=== PATIENT | male | born 1940 | race Caucasian/White ===

== ENCOUNTER 2019-11-02 07:00 | Day surgery (SDC) | payer MEDICARE ==
[2019-10-28 09:52] LABS: BASOPHILS % (AUTO) 0.6 % (0.0-5.0); EOSINOPHILS % (AUTO) 2.4 % (0.0-8.0); MEAN CORPUSCULAR HGB CONC 33.1 g/dL (32.0-36.0); MEAN CORPUSCULAR VOLUME 96.6 fL (79-99); MONOCYTES % (AUTO) 10.1 % (3.0-13.0); NEUTROPHILS % (AUTO) 70.5 % (40.0-77.0); PLATELET COUNT (AUTO) 393 K/uL (130-400); RED BLOOD CELL COUNT(AUTO) 4.35 MIL/uL (4.50-6.20); RED CELL DISTRIBUTION WIDTH 15.1 % (11.0-15.5); WHITE BLOOD COUNT (AUTO) 7.1 K/uL (4.8-10.8)
[2019-10-28 10:00] LABS: CREATININE 2.7 mg/dL (0.5-1.5); POTASSIUM 4.7 mmol/L (3.5-5.1)
--- NOTE | 2019-11-01 09:34 | NUR ---
No covid test done, spoke to Doctor Corby and Doctor Harika and both agreed to have patient seen with rapid covid test done. Order in cpoe.
--- NOTE | 2019-11-01 14:18 | NUR ---
LABS INFORMED RAYMOND HERRERA OF BUN/CREA RESULTS. PER DR. ELIZABETH, NO ORDERS RECEIVED. PROCEED WITH PLANNED PROCEDURE
[2019-11-02] VITALS (10 sets, daily range): BP systolic 81–135; BP diastolic 47–74
[~2019-11-02] VITALS: Ht 180.3 cm; Wt 79.4 kg
[~2019-11-02 07:00] MED LIST: APIX5TAB PO; DRON400T2 PO; FENO145T26 PO; FISH1CAP27 PO; FLUT1DIS4 IH; FURO40TA5 PO; LISI40TA4 PO; METF-446 PO; POTA10CA44 PO; PRAV10TA39 PO; TAMS-1 PO
[2019-11-02] MEDS ORDERED: SODIUM CHLORIDE 0.9% 1000ML 1,000 ML IV ONE (07:22)
[2019-11-02] MEDS ORDERED: PROPOFOL 10 MG/ML 20ML VIAL IV ONE (08:29)
[2019-11-02] MEDS ORDERED: SUCCINYLCHOLINE 200MG/10ML SYR ONE (08:29)
[2019-11-02] MEDS ORDERED: LIDOCAINE PF 2% 5ML ABBOJECT ONE (08:29)
--- NOTE | 2019-11-02 08:45 | NUR ---
In room Dr. Shabazz and MODESTO Woodard in room; pads applied to pt by Dr. Shabazz. Time out called. All in agreement. First shock delivered at 200J. Pt continued in A fib. Second shock delivered then at 250J. No further shock delivered.
--- NOTE | 2019-11-02 09:50 | NUR ---
D/C Pt was prepared for discharge. Discharge instructions were given to pt and to over the phone. Copies of instructions and prescription given to pt. Also informed them of the follow up appointment with Dr. Shabazz with time and date given. Also informed them about the new medications he needs to start and on the one he needs to stop. Both verbalized understanding. All questions answered. Assisted pt in getting dressed and took him outside facility via w/c where was waiting. Pt in no distress and was very appreciative.
== END 2019-11-02 10:00 ==
LOC: DAH 07:00
PROVIDERS: ATTEND Internal Medicine Cardiovascular Disease
DX: I48.19 Other persistent atrial fibrillation (principal); I49.8 Other specified cardiac arrhythmias; I49.3 Ventricular premature depolarization; I10 Essential (primary) hypertension; E78.5 Hyperlipidemia, unspecified; E11.9 Type 2 diabetes mellitus without complications; F03.90 Unspecified dementia, unspecified severity, without behavioral disturbance, psychotic disturbance, mood disturbance, and anxiety; Z79.01 Long term (current) use of anticoagulants; Z79.899 Other long term (current) drug therapy
CPT/HCPCS: 36415; 80048; 82948; 85025; 87426; 92960; 93005 ×2; A4215; A4216; A4221; A4222; A4223 ×3; A4606; A4663; J0330; J2001; J2704; J7030

== ENCOUNTER 2019-12-15 07:23 | Day surgery (SDC) | payer MEDICARE ==
[2019-12-10 15:19] LABS: BASOPHILS % (AUTO) 0.6 % (0.0-5.0); EOSINOPHILS % (AUTO) 1.8 % (0.0-8.0); HEMATOCRIT 36.7 % (42-54); LYMPHOCYTES % (AUTO) 13.5 % (21.0-51.0); MEAN CORPUSCULAR HEMOGLOBIN 31.3 pg (27.0-33.0); MEAN CORPUSCULAR HGB CONC 33.5 g/dL (32.0-36.0); MEAN CORPUSCULAR VOLUME 93.4 fL (79-99); MONOCYTES % (AUTO) 10.9 % (3.0-13.0); NEUTROPHILS % (AUTO) 72.5 % (40.0-77.0); PLATELET COUNT (AUTO) 397 K/uL (130-400); RED BLOOD CELL COUNT(AUTO) 3.93 MIL/uL (4.50-6.20); RED CELL DISTRIBUTION WIDTH 14.9 % (11.0-15.5); WHITE BLOOD COUNT (AUTO) 8.4 K/uL (4.8-10.8)
[2019-12-10 15:32] LABS: CREATININE 2.1 mg/dL (0.5-1.5); POTASSIUM 4.9 mmol/L (3.5-5.1)
[2019-12-14 08:55] VITALS: BP 163/99
[~2019-12-15] VITALS: Ht 177.8 cm; Wt 71.6 kg
[2019-12-15] VITALS (11 sets, daily range): BP systolic 123–188; BP diastolic 72–96
[~2019-12-15 07:23] MED LIST changes: +AMIO200T6 PO; -DRON400T2 PO; +IPRA3AMP24 IH; +METF-444 PO; -METF-446 PO; +METF500S7 PO; +METO-408 PO; +SODIUM CHLORIDE 0.9% 1000ML 1,000 ML IV SCH
--- NOTE | 2019-12-15 07:30 | NUR ---
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 sat 98 % on RA. Pt prep for Cardioversion.
[2019-12-15] MEDS ORDERED: PROPOFOL 10 MG/ML 20ML VIAL IV ONE (08:57)
--- NOTE | 2019-12-15 09:00 | NUR ---
MD informed of pt SOB and info relayed to Anesthesia team by primary MD.
--- NOTE | 2019-12-15 09:00 | NUR ---
Cardioversion Pt given 150 of propofol by Anesthesia at 0902 , Cardioversion at 50 joules administered to pt at 0903 after sedation was successfully induced. SR noted on defib monitor. OPA placed on pt due to sedation by Dr Tavarez. Opa removed at 907 after pt noted to be awake. Will continue to monitor VS. Md at bedside spoke to and informed of findings. Addendum: 12/15/19 at 1219 by RADHA MARTIN RN RN 150 JOULES ADMINISTERED CORRECTION FROM 50 JOULES PER ABOVE CHARTING
--- NOTE | 2019-12-15 10:00 | NUR ---
Pt DC Pt dcd via wheelchair to in private vehicle.
[2019-12-16] MEDS ORDERED: METF-446 PO (09:47)
== END 2019-12-15 11:16 | disposition home or self-care (01) ==
LOC: DAH 07:23
PROVIDERS: ATTEND Internal Medicine Cardiovascular Disease
DX: I48.19 Other persistent atrial fibrillation (principal); I49.3 Ventricular premature depolarization; J44.9 Chronic obstructive pulmonary disease, unspecified; I10 Essential (primary) hypertension; E11.9 Type 2 diabetes mellitus without complications; E78.5 Hyperlipidemia, unspecified; F03.90 Unspecified dementia, unspecified severity, without behavioral disturbance, psychotic disturbance, mood disturbance, and anxiety; Z79.899 Other long term (current) drug therapy; Z20.828 Contact with and (suspected) exposure to other viral communicable diseases
CPT/HCPCS: 36415; 80048; 82948; 85025; 92960; 93005 ×2; A4215; A4216; A4221; A4222; A4223 ×3; A4606; A4663; C9803; J2704; U0003

== ENCOUNTER 2019-12-15 19:38 | Inpatient (IN) | payer MEDICARE ==
[~2019-12-15] VITALS: Ht 177.8 cm; Wt 69.9 kg
[~2019-12-15 19:38] MED LIST changes: -SODIUM CHLORIDE 0.9% 1000ML 1,000 ML IV SCH
[2019-12-15 20:00] LABS: BASOPHILS % (AUTO) 0.6 % (0.0-5.0); EOSINOPHILS % (AUTO) 2.3 % (0.0-8.0); HEMATOCRIT 38.7 % (42-54); LYMPHOCYTES % (AUTO) 20.2 % (21.0-51.0); MEAN CORPUSCULAR HEMOGLOBIN 31.8 pg (27.0-33.0); MEAN CORPUSCULAR HGB CONC 33.6 g/dL (32.0-36.0); MEAN CORPUSCULAR VOLUME 94.6 fL (79-99); MONOCYTES % (AUTO) 9.9 % (3.0-13.0); NEUTROPHILS % (AUTO) 66.1 % (40.0-77.0); PLATELET COUNT (AUTO) 527 K/uL (130-400); RED BLOOD CELL COUNT(AUTO) 4.09 MIL/uL (4.50-6.20); RED CELL DISTRIBUTION WIDTH 15.3 % (11.0-15.5); WHITE BLOOD COUNT (AUTO) 10.6 K/uL (4.8-10.8)
[2019-12-15 20:03] LABS: ABG BASE EXCESS -1.5 mmol/L (-2.0-3.0); ABG HCO3 23.1 mmol/L (21.0-28.0); ABG OXYGEN SATURATION 97.7 % (95.0-99.0); ABG PCO2 39 mmHg (35-48)
[2019-12-15] MEDS ORDERED: ALBUTEROL INHALER 90MCG/INH IH ONE (20:06)
[2019-12-15 20:15] LABS: CREATININE 2.1 mg/dL (0.5-1.5); POTASSIUM 4.4 mmol/L (3.5-5.1)
[2019-12-15 20:16] LABS: INR 1.14 (0.85-1.15); PARTIAL THROMBOPLASTIN TIME 29.2 SEC (26.3-35.5); PROTHROMBIN TIME 12.2 SEC (9.6-11.6)
[2019-12-15 20:19] LABS: ALBUMIN 3.4 g/dL (3.5-5.0); BILIRUBIN,TOTAL 0.5 mg/dL (0.2-1.0); TOTAL PROTEIN, SERUM 6.9 g/dL (6.0-8.3)
[2019-12-15 20:24] LABS: B-TYPE NATRIURETIC PEPTIDE 790 pg/mL (0-100)
[2019-12-15] MEDS ORDERED: ASPIRIN 325 MG TABLET ONE (20:59)
[2019-12-15] MEDS ORDERED: NITROGLYCERIN 1GM/1 INCH PACKET TD ONE (21:00)
[2019-12-15] MEDS ORDERED: FUROSEMIDE 10 MG/ML 4ML VIAL ONE (21:01)
[2019-12-15] MEDS ORDERED: 1/2 NORMAL SALINE 1,000 ML IV SCH (23:30)
[2019-12-16] MEDS ORDERED: FUROSEMIDE 10 MG/ML 4ML VIAL IVP SCH
[2019-12-16 04:43] LABS: BASOPHILS % (AUTO) 0.2 % (0.0-5.0); EOSINOPHILS % (AUTO) 0.1 % (0.0-8.0); HEMATOCRIT 33.7 % (42-54); LYMPHOCYTES % (AUTO) 4.2 % (21.0-51.0); MEAN CORPUSCULAR HEMOGLOBIN 31.3 pg (27.0-33.0); MEAN CORPUSCULAR HGB CONC 32.9 g/dL (32.0-36.0); MEAN CORPUSCULAR VOLUME 94.9 fL (79-99); MONOCYTES % (AUTO) 7.2 % (3.0-13.0); NEUTROPHILS % (AUTO) 87.4 % (40.0-77.0); PLATELET COUNT (AUTO) 429 K/uL (130-400); RED BLOOD CELL COUNT(AUTO) 3.55 MIL/uL (4.50-6.20); RED CELL DISTRIBUTION WIDTH 15.2 % (11.0-15.5); WHITE BLOOD COUNT (AUTO) 9.3 K/uL (4.8-10.8)
[2019-12-16 04:53] LABS: CREATININE 2.1 mg/dL (0.5-1.5); POTASSIUM 4.4 mmol/L (3.5-5.1)
[2019-12-16 04:57] LABS: ALBUMIN 3.4 g/dL (3.5-5.0); BILIRUBIN,TOTAL 0.5 mg/dL (0.2-1.0); TOTAL PROTEIN, SERUM 6.8 g/dL (6.0-8.3)
[2019-12-16] MEDS ORDERED: METF-446 PO (09:47)
[2019-12-16] MEDS ORDERED: CEFTRIAXONE SODIUM 1 GM ONE (13:15)
[2019-12-16] MEDS ORDERED: SODIUM CHLORIDE 0.9% 50 ML IV ONE (13:16)
[2019-12-16] MEDS ORDERED: FUROSEMIDE 10 MG/ML 4ML VIAL ONE (16:25)
[2019-12-16] MEDS ORDERED: ACETAMINOPHEN 325 MG TAB ONE (16:26)
[2019-12-16] MEDS: FUROSEMIDE 10 MG/ML 4ML VIAL IV SCH (17:45)
[2019-12-16] MEDS ORDERED: AMIODARONE HCL 200 MG TABLET PO ONE (20:26)
[2019-12-16] MEDS ORDERED: APIXABAN 2.5 MG TABLET PO ONE (20:27)
[2019-12-16] MEDS: AMIODARONE HCL 200 MG TABLET PO SCH (21:00)
[2019-12-16] MEDS: APIXABAN 5 MG TABLET PO SCH (21:00)
[2019-12-16] MEDS ORDERED: FENOFIBRATE NANOCRYSTALLIZED 145 MG TAB PO SCH (21:00)
[2019-12-16] MEDS: **HM**(Pravastatin Sodium 10 MG PO SCH (21:00)
[2019-12-16 21:53] VITALS: BP 151/92
[2019-12-16] MEDS ORDERED: CEFTRIAXONE SODIUM 1 GM IVP SCH (22:00)
[2019-12-16] MEDS ORDERED: MORPHINE SULFATE 4 MG/1ML SYG IV ONE (22:00)
[2019-12-16] MEDS ORDERED: MORPHINE SULFATE 4 MG/1ML SYG ONE (22:18)
[2019-12-16 23:35] VITALS: BP 132/77
[2019-12-17 03:59] VITALS: BP 122/74
[2019-12-17] MEDS: FUROSEMIDE 10 MG/ML 4ML VIAL IV SCH (04:29)
[2019-12-17 04:57] LABS: HEMATOCRIT 32.1 % (42-54); MEAN CORPUSCULAR HEMOGLOBIN 31.9 pg (27.0-33.0); MEAN CORPUSCULAR HGB CONC 34.6 g/dL (32.0-36.0); MEAN CORPUSCULAR VOLUME 92.2 fL (79-99); PLATELET COUNT (AUTO) 378 K/uL (130-400); RED BLOOD CELL COUNT(AUTO) 3.48 MIL/uL (4.50-6.20); RED CELL DISTRIBUTION WIDTH 14.9 % (11.0-15.5)
[2019-12-17 05:36] LABS: BAND NEUTROPHILS % (MANUAL) 4 % (0-2); LYMPHOCYTES % (MANUAL) 13 % (22-44); MONOCYTES % (MANUAL) 5 % (2-9); REACTIVE LYMPHOCYTES 1 % (0-0); SEGMENTED NEUTROPHILS % 77 % (40-70)
[2019-12-17 05:37] LABS: MAN.DIFF COMMENT-IMPRESSION MANUAL DIFFERENTIAL; PLATELET MORPHOLOGY COMMENT ADEQUATE
[2019-12-17 05:49] LABS: ALBUMIN 2.8 g/dL (3.5-5.0); BILIRUBIN,TOTAL 0.4 mg/dL (0.2-1.0); CREATININE 1.9 mg/dL (0.5-1.5); POTASSIUM 3.9 mmol/L (3.5-5.1); TOTAL PROTEIN, SERUM 5.8 g/dL (6.0-8.3)
[2019-12-17] MEDS: IPRATROPIUM/ALBUTEROL SULFATE 3 ML SOLUTION IH SCH ×4 (06:00→22:32)
[2019-12-17 08:00] VITALS: BP 130/75
--- NOTE | 2019-12-17 08:19 | NUR ---
MET WITH PATIENT AT BEDSIDE IN ER FOR DC PLANNING PATIENT CURLED UP ON LEFT SIDE, STATES BED VERY UNCOMFORTABLE, LOOKS VERY FRAIL STATES LIVES WITH SPOUSE JAMARI WHO WILL PROVIDE TRANSPORT- HOME SAFE AND ACCESSIBLE--PT STATES HE IS INDEPENDENT, DRIVES, NO PROVIDER OR SERVICES-- NO DME EXCEPT A NEBULIZER. PATIENT WITH HISTORY OF COPD, STATES BELIEVES WILL NEED OXYGEN ON THIS ADMISSION; DISCUSSED PROCESS, RX FOR O2 IS CLOSER TO DISCHARGE. VERBALIZED UNDERSTANDING. DCP HOME. CM TO FOLLOW Addendum: 12/17/19 at 0825 by CATHRYN WALKER RN CM Amended: Links added.
[2019-12-17] MEDS ORDERED: METFORMIN HCL 500 MG TABLET PO SCH ×2 (09:00→21:00)
[2019-12-17] MEDS ORDERED: LISINOPRIL 40 MG TABLET PO SCH (09:00)
[2019-12-17] MEDS: METOPROLOL SUCCINATE 50 MG TAB.SR.24H PO SCH (09:59)
[2019-12-17] MEDS: AMIODARONE HCL 200 MG TABLET PO SCH ×2 (10:00→20:05)
[2019-12-17] MEDS: APIXABAN 5 MG TABLET PO SCH ×2 (10:01→20:05)
[2019-12-17 11:53] VITALS: BP 117/73
[2019-12-17] MEDS: CEFTRIAXONE SODIUM 1 GM IVP SCH (13:00)
--- NOTE | 2019-12-17 13:45 | NUR ---
ALEXIS COVINGTON spoke with pt ,discussed plan of care new orders given form filled out for life vest by Alexis Truong from case management aware of order will take care of setting up LIFE VEST from [facility] Alexis [place] request pt has Life Vest on prior to discharge aware pt had Afib rate in the 70s carlee 25 min 1035 am to 1100am , converted back to sinus rhythm
[2019-12-17] MEDS: FUROSEMIDE 40 MG TABLET PO SCH (15:35)
[2019-12-17 16:00] VITALS: BP 121/69
[2019-12-17 20:00] VITALS: BP 127/79
[2019-12-17] MEDS: TAMSULOSIN HCL 0.4 MG CAP.ER.24H PO SCH (20:05)
[2019-12-17] MEDS: ISOSORBIDE DINITRATE 20 MG TABLET PO SCH (20:59)
[2019-12-17] MEDS ORDERED: FISH OIL 1000 MG/CAP PO SCH (21:00)
[2019-12-17] MEDS: **HM**(Pravastatin Sodium 10 MG PO SCH (21:00)
[2019-12-18 04:00] VITALS: BP 138/66
[2019-12-18 05:27] LABS: CREATININE 2.1 mg/dL (0.5-1.5); POTASSIUM 3.7 mmol/L (3.5-5.1)
[2019-12-18] MEDS: IPRATROPIUM/ALBUTEROL SULFATE 3 ML SOLUTION IH SCH ×3 (06:00→22:00)
[2019-12-18 08:00] VITALS: BP 147/88
[2019-12-18] MEDS: APIXABAN 5 MG TABLET PO SCH ×2 (08:52→19:54)
[2019-12-18] MEDS: FUROSEMIDE 40 MG TABLET PO SCH (08:53)
[2019-12-18] MEDS: AMIODARONE HCL 200 MG TABLET PO SCH ×2 (08:53→19:54)
[2019-12-18] MEDS: METOPROLOL SUCCINATE 50 MG TAB.SR.24H PO SCH (08:54)
[2019-12-18] MEDS: POTASSIUM CHLORIDE 10 MEQ/TAB.SA PO SCH (08:54)
[2019-12-18] MEDS: ISOSORBIDE DINITRATE 20 MG TABLET PO SCH ×2 (11:13→19:53)
--- NOTE | 2019-12-18 11:30 | NUR ---
REPORT RECD FROM [facility] LIFE VEST NEEDED ADVISED BY KHUSHI MURPHY STATED WOULD PROBABLY BE HER FOR WEEK END STILL ON OXYGEN LIFE VEST FORM RECD FROM DR. NERI CHENEY RECD FROM PATIENT. REQUESTED MORE EXPLANATION RE DEVICE. REQUESTED INFO RE OXYGEN RX ETC. EXPLANATIONS GIVEN. PT SHOULD HAVE HOME O2 EVAL DONE FRIDAY AFTERNOON OR FRIDAY MORNING EARLY TO PLAN FOR FRIDYA DISCHARGE. CM TO FOLLOW UP PENDING LIFE VEST RX/SET UP
[2019-12-18 11:37] VITALS: BP 129/63
[2019-12-18] MEDS: CEFTRIAXONE SODIUM 1 GM IVP SCH (15:15)
[2019-12-18 16:00] VITALS: BP 138/83
[2019-12-18] MEDS: HYDRALAZINE HCL 10 MG TABLET PO SCH (19:54)
[2019-12-18] MEDS: TAMSULOSIN HCL 0.4 MG CAP.ER.24H PO SCH (19:54)
[2019-12-18] MEDS: **HM**(Pravastatin Sodium 10 MG PO SCH (19:58)
[2019-12-18 20:00] VITALS: BP 154/82
[2019-12-18 23:51] VITALS: BP 124/71
[2019-12-19 03:43] VITALS: BP 137/68
[2019-12-19] MEDS: IPRATROPIUM/ALBUTEROL SULFATE 3 ML SOLUTION IH SCH ×3 (06:31→22:09)
--- NOTE | 2019-12-19 06:45 | NUR ---
DELFINO GRIMALDO ROUNDED: Asked caption writer regarding patient's status with an order of Home O2 Evaluation.
[2019-12-19 07:45] VITALS: BP 154/72
[2019-12-19] MEDS: HYDRALAZINE HCL 10 MG TABLET PO SCH ×2 (08:17→20:02)
[2019-12-19] MEDS: APIXABAN 5 MG TABLET PO SCH ×2 (08:18→20:02)
[2019-12-19] MEDS: METOPROLOL SUCCINATE 50 MG TAB.SR.24H PO SCH (08:19)
[2019-12-19] MEDS: FUROSEMIDE 40 MG TABLET PO SCH (08:19)
[2019-12-19] MEDS: AMIODARONE HCL 200 MG TABLET PO SCH ×2 (08:19→20:02)
[2019-12-19] MEDS: POTASSIUM CHLORIDE 10 MEQ/TAB.SA PO SCH (08:19)
[2019-12-19 11:02] VITALS: BP 116/78
[2019-12-19] MEDS: ISOSORBIDE DINITRATE 20 MG TABLET PO SCH ×2 (11:15→20:02)
[2019-12-19] MEDS: CEFTRIAXONE SODIUM 1 GM IVP SCH (13:21)
[2019-12-19 16:04] VITALS: BP 137/70
[2019-12-19 19:43] VITALS: BP 142/78
[2019-12-19] MEDS: TAMSULOSIN HCL 0.4 MG CAP.ER.24H PO SCH (20:02)
[2019-12-19] MEDS: **HM**(Pravastatin Sodium 10 MG PO SCH (20:16)
[2019-12-19 23:56] VITALS: BP 148/78
[2019-12-20 03:59] VITALS: BP 143/77
[2019-12-20] MEDS: IPRATROPIUM/ALBUTEROL SULFATE 3 ML SOLUTION IH SCH ×2 (06:42→14:20)
[2019-12-20 07:30] VITALS: BP 115/79
[2019-12-20 08:31] LABS: ALBUMIN 3.1 g/dL (3.5-5.0); BILIRUBIN,TOTAL 0.4 mg/dL (0.2-1.0); POTASSIUM 3.9 mmol/L (3.5-5.1); TOTAL PROTEIN, SERUM 6.6 g/dL (6.0-8.3)
[2019-12-20] MEDS: FUROSEMIDE 40 MG TABLET PO SCH (09:02)
[2019-12-20] MEDS: POTASSIUM CHLORIDE 10 MEQ/TAB.SA PO SCH (09:02)
[2019-12-20] MEDS: APIXABAN 5 MG TABLET PO SCH (09:02)
[2019-12-20] MEDS: HYDRALAZINE HCL 10 MG TABLET PO SCH (09:02)
[2019-12-20] MEDS: AMIODARONE HCL 200 MG TABLET PO SCH (09:03)
[2019-12-20] MEDS: METOPROLOL SUCCINATE 50 MG TAB.SR.24H PO SCH (09:03)
[2019-12-20] MEDS: ISOSORBIDE DINITRATE 20 MG TABLET PO SCH (09:03)
[2019-12-20 11:00] VITALS: BP 115/82
[2019-12-20] MEDS: CEFTRIAXONE SODIUM 1 GM IVP SCH (12:55)
[2019-12-20 16:00] VITALS: BP 147/80
--- NOTE | 2019-12-20 18:10 | NUR ---
DC HOME WITH LIFE VEST AND O2 CONCENTRATOR, TANK FOR TRANSPORT, WILL RETURN IN AM CONCENTRATOR UNTIL THEY RECEIVE HIS FROM [facility] PATIENT ALL INFO AND ORDERS SENT TO DR. Muhammad FOR [place], PENDING TO RECIEVE BACK Addendum: 12/20/19 at 1812 by CATHRYN WALKER RN CM Amended: Links added.
--- NOTE | 2019-12-20 20:04 | NUR ---
PATIENT DISCHARGE PATIENT DISCHARGE, IV DISCONTINUED, CATHLON INTACT, BLEEDING CONTROLLED, PATIENT TOLERATED WITHOUT INCIDENT. DISCUSSED WITH PATIENT FOLLOW UP APPOINTMENTS FOR TOMORROW AND 1-[address] ABBOTT, ALSO, DR. ABBOTT REQUEST BMP PRIOR TO OFFICE VISIT. PATIENT STATED HE UNDERSTOOD AND HAD NO ADDITIONAL QUESTIONS.
--- NOTE | 2019-12-21 11:09 | NUR ---
SENT ALL INFO FROM DR. Muhammad OFFICE TO [facility]. SPOUSE TO FOLLOW UP FOR DELIVERY OF THEIR HOME EQUIPMENT
== END 2019-12-20 20:25 | disposition home or self-care (01) | DRG 291 ==
LOC: EDH 19:38 → EDHIP 22:12 → 3CH 12-16 21:29
PROVIDERS: ADMIT Internal Medicine; ATTEND Internal Medicine
PROC: 5A2204Z Restoration of Cardiac Rhythm, Single (ICD-10-PCS; principal; 2019-12-15)
DX: I13.0 Hypertensive heart and chronic kidney disease with heart failure and stage 1 through stage 4 chronic kidney disease, or unspecified chronic kidney disease (principal); J96.91 Respiratory failure, unspecified with hypoxia; I50.43 Acute on chronic combined systolic (congestive) and diastolic (congestive) heart failure; J18.1 Lobar pneumonia, unspecified organism; J44.1 Chronic obstructive pulmonary disease with (acute) exacerbation; N17.9 Acute kidney failure, unspecified; D68.69 Other thrombophilia; J44.0 Chronic obstructive pulmonary disease with (acute) lower respiratory infection; I42.0 Dilated cardiomyopathy; Z20.828 Contact with and (suspected) exposure to other viral communicable diseases; Z79.899 Other long term (current) drug therapy; E78.5 Hyperlipidemia, unspecified; N40.0 Benign prostatic hyperplasia without lower urinary tract symptoms; Z79.01 Long term (current) use of anticoagulants; Z87.891 Personal history of nicotine dependence; I48.0 Paroxysmal atrial fibrillation; I49.3 Ventricular premature depolarization; Z91.11 Patient's noncompliance with dietary regimen; N18.30 Chronic kidney disease, stage 3 unspecified; E11.22 Type 2 diabetes mellitus with diabetic chronic kidney disease; I25.10 Atherosclerotic heart disease of native coronary artery without angina pectoris; I34.0 Nonrheumatic mitral (valve) insufficiency; I25.5 Ischemic cardiomyopathy
CPT/HCPCS: 36415; 36600; 71045; 80048; 80053; 82550; 82803; 82948; 83880; 84484; 85025; 85610; 85730; 87426; 93005; 93306; 93356; 94640; 94660; 94664; 94760; G0378; J0696; J1940; J2270; U0003

== ENCOUNTER 2019-12-23 06:05 | Inpatient (IN) | payer MEDICARE ==
[~2019-12-23] VITALS: Ht 180.3 cm; Wt 62.7 kg
[~2019-12-23 06:05] MED LIST changes: +METF-446 PO; -METF500S7 PO
[2019-12-23] MEDS ORDERED: METHYLPREDNISOLONE SOD SUCC 125MG/2ML VIAL ONE (06:20)
[2019-12-23] MEDS ORDERED: FUROSEMIDE 10 MG/ML 4ML VIAL ONE ×2 (06:20→14:49)
[2019-12-23 06:37] LABS: ABG BASE EXCESS 1.5 mmol/L (-2.0-3.0); ABG HCO3 27.2 mmol/L (21.0-28.0); ABG OXYGEN SATURATION 86.1 % (95.0-99.0); ABG PCO2 47 mmHg (35-48)
[2019-12-23] MEDS ORDERED: IPRATROPIUM/ALBUTEROL SULFATE 3 ML SOLUTION IH ONE (06:43)
[2019-12-23] MEDS ORDERED: SODIUM CHLORIDE 0.9% 100 ML IV ONE (07:20)
[2019-12-23] MEDS ORDERED: CEFTRIAXONE SODIUM 2 GM VIAL ONE (07:20)
[2019-12-23] MEDS ORDERED: ALBUTEROL SULFATE 0.083% 2.5 MG/3 ML INH IH ONE (07:43)
[2019-12-23 07:52] LABS: BASOPHILS % (AUTO) 0.5 % (0.0-5.0); EOSINOPHILS % (AUTO) 3.6 % (0.0-8.0); HEMATOCRIT 37.2 % (42-54); LYMPHOCYTES % (AUTO) 8.3 % (21.0-51.0); MEAN CORPUSCULAR HEMOGLOBIN 30.8 pg (27.0-33.0); MEAN CORPUSCULAR VOLUME 96.4 fL (79-99); MONOCYTES % (AUTO) 7.4 % (3.0-13.0); NEUTROPHILS % (AUTO) 79.6 % (40.0-77.0); PLATELET COUNT (AUTO) 499 K/uL (130-400); RED BLOOD CELL COUNT(AUTO) 3.86 MIL/uL (4.50-6.20); WHITE BLOOD COUNT (AUTO) 9.6 K/uL (4.8-10.8)
[2019-12-23 08:18] LABS: ALANINE AMINOTRANSFERASE 56 U/L (12-78); ALBUMIN 3.3 g/dL (3.5-5.0); ASPARTATE AMINOTRANSFERASE 42 U/L (10-37); BILIRUBIN,TOTAL 0.5 mg/dL (0.2-1.0); CARBON DIOXIDE 31 mmol/L (21-32); CHLORIDE 102 mmol/L (101-111); CREATINE KINASE, TOTAL 61 U/L (21-232); GLOMERULAR FILTR. RATE CALC 34 mL/min (>60); GLUCOSE,RANDOM 131 mg/dL (70-105); MYOGLOBIN 142 ng/mL (10-92); POTASSIUM 4.7 mmol/L (3.5-5.1); SODIUM SERUM 140 mmol/L (136-145); TOTAL PROTEIN, SERUM 7.1 g/dL (6.0-8.3); TROPONIN I < 0.04 ng/mL (0.00-0.06); UREA NITROGEN, BLOOD 32 mg/dL (7-18)
[2019-12-23 08:24] LABS: INR 1.12 (0.85-1.15); PARTIAL THROMBOPLASTIN TIME 32.5 SEC (26.3-35.5)
[2019-12-23 08:30] LABS: B-TYPE NATRIURETIC PEPTIDE 1690 pg/mL (0-100)
[2019-12-23 08:54] LABS: BILIRUBIN,URINE Negative (NEGATIVE); COLOR,URINE Yellow (YELLOW); GLUCOSE, URINE (UA) Negative (NEGATIVE); KETONES,URINE Negative (NEGATIVE); LEUKOCYTE ESTERASE ,URINE Negative (NEGATIVE); NITRATE,URINE Negative (NEGATIVE); OCCULT BLOOD,URINE Negative (NEGATIVE); PH,URINE 5.5 (5.0-8.0); PROTEIN,URINE Negative (NEGATIVE)
[2019-12-23 08:58] LABS: APPEARANCE,URINE CLEAR (CLEAR)
[2019-12-23] MEDS ORDERED: AZITHROMYCIN 500MG+NS 250ML 250 ML IV ONE (09:07)
[2019-12-23] MEDS: METOPROLOL SUCCINATE 50 MG TAB.SR.24H PO SCH (11:43)
[2019-12-23] MEDS: POTASSIUM CHLORIDE 10 MEQ/TAB.SA PO SCH (11:47)
[2019-12-23] MEDS ORDERED: IPRATROPIUM/ALBUTEROL SULFATE 3 ML SOLUTION IH SCH (12:00)
[2019-12-23] MEDS: ALBUTEROL INHALER 90MCG/INH IH SCH ×2 (12:23→18:00)
[2019-12-23] MEDS: METFORMIN HCL 500 MG TABLET PO SCH (17:00)
[2019-12-23] MEDS ORDERED: METFORMIN HCL 500 MG TABLET ONE (17:49)
--- NOTE | 2019-12-23 19:00 | NUR ---
ER REPORT RECEIVED REPORT FROM SHANIQUA RIOS RN/ER. WAITING ON PATIENT TO RECEIVE PT TO ROOM 404. REPORT GIVEN TO CLARK PURI TO ADMIT PATIENT.
[2019-12-23 19:20] VITALS: BP 185/97
[2019-12-23] MEDS: FUROSEMIDE 10 MG/ML 4ML VIAL IVP SCH (21:49)
[2019-12-23] MEDS: ISOSORBIDE MONONITRATE 20 MG TABLET PO SCH (21:49)
[2019-12-23] MEDS: APIXABAN 5 MG TABLET PO SCH (21:49)
[2019-12-23] MEDS: FENOFIBRATE NANOCRYSTALLIZED 145 MG TAB PO SCH (21:49)
[2019-12-23] MEDS: SIMVASTATIN 10 MG TABLET PO SCH (21:50)
[2019-12-23] MEDS: TAMSULOSIN HCL 0.4 MG CAP.ER.24H PO SCH (21:50)
[2019-12-23] MEDS: LISINOPRIL 40 MG TABLET PO SCH (21:50)
[2019-12-23 23:07] VITALS: BP 157/77
[2019-12-24 04:42] VITALS: BP 127/55
[2019-12-24] MEDS: ALBUTEROL INHALER 90MCG/INH IH SCH ×4 (06:00→18:00)
[2019-12-24] MEDS: FUROSEMIDE 10 MG/ML 4ML VIAL IVP SCH ×3 (06:30→21:36)
--- NOTE | 2019-12-24 07:50 | NUR ---
DR. MURPHY IN TO SEE PT. ORDERED LABS FOR AM.
[2019-12-24 08:00] VITALS: BP 174/108
[2019-12-24] MEDS: AZITHROMYCIN 500MG+NS 250ML 250 ML IV SCH (08:40)
[2019-12-24] MEDS: CEFTRIAXONE SODIUM 1 GM IVP SCH (08:40)
[2019-12-24] MEDS: ISOSORBIDE MONONITRATE 20 MG TABLET PO SCH ×2 (08:41→21:36)
[2019-12-24] MEDS: AMIODARONE HCL 200 MG TABLET PO SCH (08:41)
[2019-12-24] MEDS: LISINOPRIL 40 MG TABLET PO SCH ×2 (08:41→21:36)
[2019-12-24] MEDS: POTASSIUM CHLORIDE 10 MEQ/TAB.SA PO SCH (08:42)
[2019-12-24] MEDS: APIXABAN 5 MG TABLET PO SCH ×2 (08:42→21:35)
[2019-12-24] MEDS: METFORMIN HCL 500 MG TABLET PO SCH ×2 (08:43→16:42)
[2019-12-24] MEDS: METOPROLOL SUCCINATE 50 MG TAB.SR.24H PO SCH (08:48)
[2019-12-24 12:00] VITALS: BP 85/57
[2019-12-24] MEDS: IPRATROPIUM/ALBUTEROL SULFATE 3 ML SOLUTION IH SCH ×2 (13:39→23:04)
[2019-12-24 16:00] VITALS: BP 98/59
--- NOTE | 2019-12-24 16:07 | NUR ---
IA NOT DONE. Phone numbers listed not answering.
[2019-12-24 19:44] VITALS: BP 119/63
[2019-12-24] MEDS: SIMVASTATIN 10 MG TABLET PO SCH (21:35)
[2019-12-24] MEDS: FENOFIBRATE NANOCRYSTALLIZED 145 MG TAB PO SCH (21:35)
[2019-12-24] MEDS: TAMSULOSIN HCL 0.4 MG CAP.ER.24H PO SCH (21:36)
[2019-12-24] MEDS: BUDESONIDE 0.5 MG/2 ML INH IH SCH (23:17)
[2019-12-24 23:53] VITALS: BP 129/71
[2019-12-25] VITALS (7 sets, daily range): BP systolic 126–156; BP diastolic 66–85
[2019-12-25 05:20] LABS: BASOPHILS % (AUTO) 0.5 % (0.0-5.0); EOSINOPHILS % (AUTO) 2.5 % (0.0-8.0); HEMATOCRIT 31.8 % (42-54); LYMPHOCYTES % (AUTO) 10.2 % (21.0-51.0); MEAN CORPUSCULAR HGB CONC 33.6 g/dL (32.0-36.0); MEAN CORPUSCULAR VOLUME 92.2 fL (79-99); MONOCYTES % (AUTO) 9.2 % (3.0-13.0); NEUTROPHILS % (AUTO) 76.9 % (40.0-77.0); PLATELET COUNT (AUTO) 478 K/uL (130-400); RED BLOOD CELL COUNT(AUTO) 3.45 MIL/uL (4.50-6.20); RED CELL DISTRIBUTION WIDTH 14.6 % (11.0-15.5); WHITE BLOOD COUNT (AUTO) 9.7 K/uL (4.8-10.8)
[2019-12-25] MEDS: FUROSEMIDE 10 MG/ML 4ML VIAL IVP SCH ×3 (05:34→21:28)
[2019-12-25 05:48] LABS: ALBUMIN 2.6 g/dL (3.5-5.0); BILIRUBIN,TOTAL 0.3 mg/dL (0.2-1.0); CREATININE 2.6 mg/dL (0.5-1.5); POTASSIUM 4.2 mmol/L (3.5-5.1); TOTAL PROTEIN, SERUM 5.7 g/dL (6.0-8.3)
[2019-12-25] MEDS: ALBUTEROL INHALER 90MCG/INH IH SCH ×4 (06:00→18:00)
[2019-12-25] MEDS: IPRATROPIUM/ALBUTEROL SULFATE 3 ML SOLUTION IH SCH ×3 (06:34→21:35)
[2019-12-25] MEDS: BUDESONIDE 0.5 MG/2 ML INH IH SCH ×2 (06:34→21:35)
[2019-12-25] MEDS: METFORMIN HCL 500 MG TABLET PO SCH ×2 (08:00→17:00)
[2019-12-25] MEDS: POTASSIUM CHLORIDE 10 MEQ/TAB.SA PO SCH (08:32)
[2019-12-25] MEDS: CEFTRIAXONE SODIUM 1 GM IVP SCH (08:32)
[2019-12-25] MEDS: LISINOPRIL 40 MG TABLET PO SCH ×2 (08:32→21:26)
[2019-12-25] MEDS: AMIODARONE HCL 200 MG TABLET PO SCH (08:32)
[2019-12-25] MEDS: AZITHROMYCIN 500MG+NS 250ML 250 ML IV SCH (08:32)
[2019-12-25] MEDS: METOPROLOL SUCCINATE 50 MG TAB.SR.24H PO SCH (08:32)
[2019-12-25] MEDS: APIXABAN 5 MG TABLET PO SCH ×2 (08:32→21:26)
[2019-12-25] MEDS: ISOSORBIDE MONONITRATE 20 MG TABLET PO SCH ×2 (08:32→21:26)
[2019-12-25] MEDS: FENOFIBRATE NANOCRYSTALLIZED 145 MG TAB PO SCH (21:26)
[2019-12-25] MEDS: SIMVASTATIN 10 MG TABLET PO SCH (21:26)
[2019-12-25] MEDS: TAMSULOSIN HCL 0.4 MG CAP.ER.24H PO SCH (21:26)
[2019-12-26 03:50] VITALS: BP_SYST 114; BP_SYST 122; BP_DIAS 56; BP_DIAS 64
[2019-12-26] MEDS: FUROSEMIDE 10 MG/ML 4ML VIAL IVP SCH (05:28)
[2019-12-26] MEDS: ALBUTEROL INHALER 90MCG/INH IH SCH ×4 (06:00→18:00)
[2019-12-26] MEDS: BUDESONIDE 0.5 MG/2 ML INH IH SCH ×2 (06:40→22:36)
[2019-12-26] MEDS: IPRATROPIUM/ALBUTEROL SULFATE 3 ML SOLUTION IH SCH ×3 (06:40→22:36)
[2019-12-26 07:24] VITALS: BP 135/77
[2019-12-26] MEDS: AZITHROMYCIN 500MG+NS 250ML 250 ML IV SCH (08:49)
[2019-12-26] MEDS: ISOSORBIDE MONONITRATE 20 MG TABLET PO SCH ×2 (08:49→20:35)
[2019-12-26] MEDS: AMIODARONE HCL 200 MG TABLET PO SCH (08:49)
[2019-12-26] MEDS: METFORMIN HCL 500 MG TABLET PO SCH (08:49)
[2019-12-26] MEDS: CEFTRIAXONE SODIUM 1 GM IVP SCH (08:49)
[2019-12-26] MEDS: APIXABAN 5 MG TABLET PO SCH ×2 (08:50→20:35)
[2019-12-26] MEDS: LISINOPRIL 40 MG TABLET PO SCH ×2 (08:50→20:35)
[2019-12-26] MEDS: METOPROLOL SUCCINATE 50 MG TAB.SR.24H PO SCH (08:50)
[2019-12-26] MEDS: POTASSIUM CHLORIDE 10 MEQ/TAB.SA PO SCH (08:50)
[2019-12-26] MEDS: INSULIN LISPRO 100 UNIT/ML 3ML SQ SCH ×3 (11:30→20:36)
[2019-12-26 11:51] VITALS: BP 109/67
[2019-12-26 15:32] VITALS: BP 123/71
[2019-12-26] MEDS: FUROSEMIDE 40 MG TABLET PO SCH (17:26)
--- NOTE | 2019-12-26 18:21 | NUR ---
INITIAL SW spoke with spouse, Agnes Mi. Patient lives with spouse. He has no home services. DME: nebulizer, LifeVest and O2 concentrator/portable. O2 arranged through [facility]. Spouse states that portable O2 is too heavy and it makes it difficult for patient or her to carry. Spouse is requesting a smaller portable O2. Patient was just released from the hospital on 12/20/2019 as per spouse. She states that patient was able to complete ADL's independently and drove prior to hospitalized the first time. Patient now needs help with ADL's and does not drive. PCP is Dr. Desmond Pierre. Pharmacy is [facility] [address]. Spouse states she wants to speak to MD regarding plan of care and what is needed for patient to recover. SW will notify CM to follow up with family regarding request for smaller portable O2. DCP is home. Addendum: 12/26/19 at 1828 by ESTEFANIA ALONSO SS Amended: Links added.
[2019-12-26 19:24] VITALS: BP 140/63
[2019-12-26] MEDS: FENOFIBRATE NANOCRYSTALLIZED 145 MG TAB PO SCH (20:35)
[2019-12-26] MEDS: SIMVASTATIN 10 MG TABLET PO SCH (20:35)
[2019-12-26] MEDS: TAMSULOSIN HCL 0.4 MG CAP.ER.24H PO SCH (20:35)
[2019-12-26 23:40] VITALS: BP 143/72
[2019-12-27 03:50] VITALS: BP 129/69
[2019-12-27] MEDS: INSULIN LISPRO 100 UNIT/ML 3ML SQ SCH ×4 (06:53→21:00)
[2019-12-27 07:57] VITALS: BP 153/76
--- NOTE | 2019-12-27 08:16 | NUR ---
CALL OUT PLACED TO DR. ELIZABETH OFFICE, LEFT MESSAGE REGARDING PENDING CONSULT
[2019-12-27] MEDS: CEFTRIAXONE SODIUM 1 GM IVP SCH (08:43)
[2019-12-27] MEDS: AMIODARONE HCL 200 MG TABLET PO SCH (08:43)
[2019-12-27] MEDS: POTASSIUM CHLORIDE 10 MEQ/TAB.SA PO SCH (08:43)
[2019-12-27] MEDS: AZITHROMYCIN 500MG+NS 250ML 250 ML IV SCH (08:43)
[2019-12-27] MEDS: LISINOPRIL 40 MG TABLET PO SCH ×2 (08:43→21:17)
[2019-12-27] MEDS: APIXABAN 5 MG TABLET PO SCH ×2 (08:44→21:17)
[2019-12-27] MEDS: FUROSEMIDE 40 MG TABLET PO SCH (08:44)
[2019-12-27] MEDS: ISOSORBIDE MONONITRATE 20 MG TABLET PO SCH ×2 (08:44→21:17)
[2019-12-27] MEDS: METOPROLOL SUCCINATE 50 MG TAB.SR.24H PO SCH (08:44)
[2019-12-27 11:46] VITALS: BP 138/75
[2019-12-27] MEDS: IPRATROPIUM/ALBUTEROL SULFATE 3 ML SOLUTION IH SCH ×3 (13:26→21:19)
[2019-12-27] MEDS: BUDESONIDE 0.5 MG/2 ML INH IH SCH ×2 (13:26→21:32)
[2019-12-27] MEDS: FUROSEMIDE 10 MG/ML 4ML VIAL IV SCH (15:08)
[2019-12-27 16:00] VITALS: BP 138/81
[2019-12-27 20:20] VITALS: BP 142/70
[2019-12-27] MEDS: FENOFIBRATE NANOCRYSTALLIZED 145 MG TAB PO SCH (21:16)
[2019-12-27] MEDS: SIMVASTATIN 10 MG TABLET PO SCH (21:17)
[2019-12-27] MEDS: TAMSULOSIN HCL 0.4 MG CAP.ER.24H PO SCH (21:17)
[2019-12-27 22:59] VITALS: BP 122/74
[2019-12-28] MEDS: FUROSEMIDE 10 MG/ML 4ML VIAL IV SCH (02:45)
[2019-12-28 03:25] VITALS: BP 141/69
[2019-12-28] MEDS: INSULIN LISPRO 100 UNIT/ML 3ML SQ SCH ×2 (05:19→11:30)
[2019-12-28 05:33] LABS: CREATININE 2.5 mg/dL (0.5-1.5); POTASSIUM 4.6 mmol/L (3.5-5.1)
[2019-12-28] MEDS: BUDESONIDE 0.5 MG/2 ML INH IH SCH (06:30)
[2019-12-28] MEDS: IPRATROPIUM/ALBUTEROL SULFATE 3 ML SOLUTION IH SCH (06:30)
--- NOTE | 2019-12-28 08:00 | NUR ---
PT AAO X 3 REVIEW PLAN OF CARE, PT IS ON 2 LITER NC. . AND HAS A LIFE VEST ON. TELE. MONITOR ON . . . AND CALL LIGHT IN REACH..
[2019-12-28] MEDS: POTASSIUM CHLORIDE 10 MEQ/TAB.SA PO SCH (08:27)
[2019-12-28] MEDS: LISINOPRIL 40 MG TABLET PO SCH (08:28)
[2019-12-28] MEDS: ISOSORBIDE MONONITRATE 20 MG TABLET PO SCH (08:28)
[2019-12-28] MEDS: METOPROLOL SUCCINATE 50 MG TAB.SR.24H PO SCH (08:29)
[2019-12-28] MEDS: AMIODARONE HCL 200 MG TABLET PO SCH (08:29)
[2019-12-28] MEDS: CEFTRIAXONE SODIUM 1 GM IVP SCH (08:29)
[2019-12-28] MEDS: AZITHROMYCIN 500MG+NS 250ML 250 ML IV SCH (08:39)
[2019-12-28 08:51] VITALS: BP 126/70
[2019-12-28] MEDS ORDERED: APIXABAN 5 MG TABLET PO SCH (09:00)
[2019-12-28] MEDS ORDERED: FUROSEMIDE 40 MG TABLET PO SCH (09:00)
[2019-12-28 11:50] VITALS: BP 106/58
[2019-12-28] MEDS: ALBUTEROL INHALER 90MCG/INH IH SCH (12:00)
--- NOTE | 2019-12-28 12:50 | NUR ---
DISCHARGE HOME, WITH , SUMMARY REVIEW .PT HAS A LIFE VEST ON. CALLED TELE MONITORING PRIOR OF DISCHARGE, RHYTHUM . SINUS. HEART RATE OF 60-62- , O2 SAT OF96% RR OF ON 2 LITER NC. PT. HAS HIS OWN O2 , AND O2 TANK.. SL TO HIS LFA WAS DISCONTINUE ,WITH NO HEMATOMA NOTED A SM PRESSURE DRSG APPLICATION ON,, DENIES ANY SOB ,AND WILL FOLLOW WITH DR. CLARA WALSH AND DR. MURPHY . JILLIAN AFTER 2 PM.. , CONCERNS . NEEDED TO SEE GETTING A OXYGEN TANK . SMALLER AND INDUSTRIAL RADIOGRAPHER ONE. CALL CASE MANGEMENT . . AND RETURN . RESPOND WAS THAT THE O2 WAS ALREADY SET. AND IF NEEDED A SMALLER O2 TANK , NEEDED TO FOLLOW WITH PRIVATE DR Uziel FOR A UPGRADE ONE. . UNDERSTANDS . . AND WILL FOLLOWUP WITH DR. MURPHY AND INSURANCE STAFF PT ON CONTINUES O2 , AND WENT HOME, WITH OWN O2 AND TANK,,
== END 2019-12-28 13:00 | disposition home or self-care (01) | DRG 291 ==
LOC: EDH 06:05 → OBSVTOIN 07:10 → EDHIP 07:10 → 4AH 19:22
PROVIDERS: ADMIT Internal Medicine; ATTEND Internal Medicine
DX: I13.0 Hypertensive heart and chronic kidney disease with heart failure and stage 1 through stage 4 chronic kidney disease, or unspecified chronic kidney disease (principal); J96.01 Acute respiratory failure with hypoxia; I50.43 Acute on chronic combined systolic (congestive) and diastolic (congestive) heart failure; I33.0 Acute and subacute infective endocarditis; J44.0 Chronic obstructive pulmonary disease with (acute) lower respiratory infection; J81.1 Chronic pulmonary edema; I48.92 Unspecified atrial flutter; I42.0 Dilated cardiomyopathy; I34.0 Nonrheumatic mitral (valve) insufficiency; I48.91 Unspecified atrial fibrillation; N18.30 Chronic kidney disease, stage 3 unspecified; E11.22 Type 2 diabetes mellitus with diabetic chronic kidney disease; E78.5 Hyperlipidemia, unspecified; F03.90 Unspecified dementia, unspecified severity, without behavioral disturbance, psychotic disturbance, mood disturbance, and anxiety; Z20.828 Contact with and (suspected) exposure to other viral communicable diseases; I25.10 Atherosclerotic heart disease of native coronary artery without angina pectoris; Z79.01 Long term (current) use of anticoagulants; Z87.01 Personal history of pneumonia (recurrent); Z87.891 Personal history of nicotine dependence; Z99.81 Dependence on supplemental oxygen
CPT/HCPCS: 36415; 36600; 71045; 80048; 80053; 81003; 82550; 82803; 82948; 83605; 83874; 83880; 84145; 84484; 85025; 85610; 85730; 86900; 86901; 87040; 87088; 87426; 87804; 93005; 94640; 94664; G0378; J0456; J0696; J1940; J2930; U0003

== ENCOUNTER 2020-01-18 09:41 | Inpatient (IN) | payer MEDICARE ==
[~2020-01-18] VITALS: Ht 177.8 cm; Wt 69.5 kg
[2020-01-18] MEDS ORDERED: ASPIRIN 325 MG TABLET ONE (10:19)
[2020-01-18 10:51] LABS: BASOPHILS % (AUTO) 0.6 % (0.0-5.0); EOSINOPHILS % (AUTO) 1.9 % (0.0-8.0); LYMPHOCYTES % (AUTO) 16.9 % (21.0-51.0); MEAN CORPUSCULAR HEMOGLOBIN 31.2 pg (27.0-33.0); MEAN CORPUSCULAR HGB CONC 31.8 g/dL (32.0-36.0); MONOCYTES % (AUTO) 12.4 % (3.0-13.0); NEUTROPHILS % (AUTO) 67.6 % (40.0-77.0); PLATELET COUNT (AUTO) 408 K/uL (130-400); RED BLOOD CELL COUNT(AUTO) 3.98 MIL/uL (4.50-6.20); RED CELL DISTRIBUTION WIDTH 15.3 % (11.0-15.5); WHITE BLOOD COUNT (AUTO) 7.8 K/uL (4.8-10.8)
[2020-01-18 11:16] LABS: ALBUMIN 3.4 g/dL (3.5-5.0); BILIRUBIN,TOTAL 0.3 mg/dL (0.2-1.0); CREATININE 3.8 mg/dL (0.5-1.5); POTASSIUM 4.6 mmol/L (3.5-5.1); TOTAL PROTEIN, SERUM 6.3 g/dL (6.0-8.3)
[2020-01-18 11:27] LABS: INR 1.18 (0.85-1.15); PARTIAL THROMBOPLASTIN TIME 28.2 SEC (26.3-35.5); PROTHROMBIN TIME 12.7 SEC (9.6-11.6)
[2020-01-18 13:05] LABS: APPEARANCE,URINE Clear (CLEAR); BILIRUBIN,URINE Negative (NEGATIVE); COLOR,URINE Yellow (YELLOW); GLUCOSE, URINE (UA) Negative (NEGATIVE); KETONES,URINE Negative (NEGATIVE); LEUKOCYTE ESTERASE ,URINE Negative (NEGATIVE); NITRATE,URINE Negative (NEGATIVE); OCCULT BLOOD,URINE Negative (NEGATIVE); PROTEIN,URINE Negative (NEGATIVE)
[2020-01-18] MEDS ORDERED: AMIODARONE HCL 200 MG TABLET PO ONE (20:59)
[2020-01-18] MEDS: ATORVASTATIN CALCIUM 10 MG TABLET PO SCH (21:00)
[2020-01-18] MEDS: TAMSULOSIN HCL 0.4 MG CAP.ER.24H PO SCH (21:00)
[2020-01-18] MEDS ORDERED: FLUTICASONE/SALMETEROL 100MCG-50MCG/DISKUS IH PRN (21:00)
[2020-01-18] MEDS: FENOFIBRATE NANOCRYSTALLIZED 145 MG TAB PO SCH (21:00)
[2020-01-18] MEDS ORDERED: APIXABAN 2.5 MG TABLET PO ONE (21:00)
[2020-01-18] MEDS ORDERED: LISINOPRIL 5 MG TABLET ONE (21:00)
[2020-01-18] MEDS ORDERED: APIXABAN 5 MG TABLET PO SCH (21:00)
[2020-01-18] MEDS ORDERED: METFORMIN HCL 500 MG TABLET ONE (21:01)
[2020-01-18] MEDS ORDERED: ISOSORBIDE MONO 30MG TAB SR PO ONE (21:01)
[2020-01-18] MEDS ORDERED: FUROSEMIDE 40 MG TABLET ONE (21:01)
[2020-01-18] MEDS ORDERED: IPRATROPIUM/ALBUTEROL SULFATE 3 ML SOLUTION IH ONE (21:08)
[2020-01-18] MEDS ORDERED: ACETAMINOPHEN 325 MG TAB PO PRN (21:45)
[2020-01-18] MEDS ORDERED: TAMSULOSIN HCL 0.4 MG CAP.ER.24H ONE (22:16)
[2020-01-19 04:21] VITALS: BP 150/77
[2020-01-19 06:18] LABS: BASOPHILS % (AUTO) 0.5 % (0.0-5.0); EOSINOPHILS % (AUTO) 3.7 % (0.0-8.0); HEMATOCRIT 33.4 % (42-54); LYMPHOCYTES % (AUTO) 21.6 % (21.0-51.0); MEAN CORPUSCULAR HEMOGLOBIN 31.6 pg (27.0-33.0); MEAN CORPUSCULAR HGB CONC 33.5 g/dL (32.0-36.0); MEAN CORPUSCULAR VOLUME 94.4 fL (79-99); MONOCYTES % (AUTO) 10.7 % (3.0-13.0); NEUTROPHILS % (AUTO) 62.9 % (40.0-77.0); PLATELET COUNT (AUTO) 325 K/uL (130-400); RED BLOOD CELL COUNT(AUTO) 3.54 MIL/uL (4.50-6.20); WHITE BLOOD COUNT (AUTO) 7.8 K/uL (4.8-10.8)
[2020-01-19 06:29] LABS: ALBUMIN 2.8 g/dL (3.5-5.0); BILIRUBIN,TOTAL 0.3 mg/dL (0.2-1.0); CREATININE 3.6 mg/dL (0.5-1.5); POTASSIUM 4.8 mmol/L (3.5-5.1); TOTAL PROTEIN, SERUM 5.4 g/dL (6.0-8.3)
[2020-01-19] MEDS: INSULIN HUMULIN R 100 UNIT/ML 3ML SQ SCH ×4 (07:24→21:00)
[2020-01-19 08:00] VITALS: BP 130/67
[2020-01-19] MEDS: FAMOTIDINE/PF 20 MG/2 ML VIAL IV SCH (08:46)
[2020-01-19] MEDS: METOPROLOL SUCCINATE 50 MG TAB.SR.24H PO SCH (08:46)
[2020-01-19] MEDS: DEXTROSE 5 %-0.45 % NACL 1,000 ML IV SCH (08:47)
[2020-01-19 11:29] VITALS: BP 125/68
[2020-01-19 16:00] VITALS: BP 154/79
[2020-01-19 19:05] VITALS: BP 141/84
[2020-01-19] MEDS: ATORVASTATIN CALCIUM 10 MG TABLET PO SCH (20:14)
[2020-01-19] MEDS: FENOFIBRATE NANOCRYSTALLIZED 145 MG TAB PO SCH (20:14)
[2020-01-19] MEDS: TAMSULOSIN HCL 0.4 MG CAP.ER.24H PO SCH (20:15)
[2020-01-19 23:58] VITALS: BP 134/55
[2020-01-20] VITALS (11 sets, daily range): BP systolic 102–142; BP diastolic 59–81
[2020-01-20] MEDS: DEXTROSE 5 %-0.45 % NACL 1,000 ML IV SCH (04:15)
[2020-01-20 06:08] LABS: CREATININE 3.7 mg/dL (0.5-1.5); POTASSIUM 4.4 mmol/L (3.5-5.1)
[2020-01-20 06:28] LABS: HEMATOCRIT 31.9 % (42-54); MEAN CORPUSCULAR HEMOGLOBIN 31.7 pg (27.0-33.0); MEAN CORPUSCULAR HGB CONC 33.5 g/dL (32.0-36.0); MEAN CORPUSCULAR VOLUME 94.4 fL (79-99); RED BLOOD CELL COUNT(AUTO) 3.38 MIL/uL (4.50-6.20); WHITE BLOOD COUNT (AUTO) 6.6 K/uL (4.8-10.8)
[2020-01-20 07:12] LABS: INR 1.1 (0.85-1.15); PARTIAL THROMBOPLASTIN TIME 27.5 SEC (26.3-35.5); PROTHROMBIN TIME 11.8 SEC (9.6-11.6)
[2020-01-20] MEDS ORDERED: HEPARIN SODIUM 1000UNIT/ML 10ML VIAL ONE (07:27)
[2020-01-20] MEDS: INSULIN HUMULIN R 100 UNIT/ML 3ML SQ SCH ×4 (07:30→21:00)
[2020-01-20] MEDS ORDERED: MEPERIDINE-PF 25 MG/ML SYG ONE ×2 (08:18→08:52)
[2020-01-20] MEDS ORDERED: MIDAZOLAM HCL 1 MG/ML 2ML VIAL ONE ×2 (08:18→08:52)
[2020-01-20] MEDS ORDERED: LIDOCAINE HCL 2% 20ML ONE (08:18)
[2020-01-20] MEDS: FAMOTIDINE/PF 20 MG/2 ML VIAL IV SCH (09:00)
[2020-01-20] MEDS ORDERED: AMIODARONE HCL 200 MG TABLET PO SCH (10:30)
[2020-01-20] MEDS: METOPROLOL SUCCINATE 50 MG TAB.SR.24H PO SCH (11:49)
[2020-01-20] MEDS: APIXABAN 2.5 MG TABLET PO SCH (20:47)
[2020-01-20] MEDS: TAMSULOSIN HCL 0.4 MG CAP.ER.24H PO SCH (20:48)
[2020-01-20] MEDS: FENOFIBRATE NANOCRYSTALLIZED 145 MG TAB PO SCH (20:48)
[2020-01-20] MEDS: ATORVASTATIN CALCIUM 10 MG TABLET PO SCH (20:48)
[2020-01-21] MEDS: DEXTROSE 5 %-0.45 % NACL 1,000 ML IV SCH (00:15)
[2020-01-21 03:52] VITALS: BP 156/85
[2020-01-21 05:39] LABS: HEMATOCRIT 32.8 % (42-54); MEAN CORPUSCULAR HEMOGLOBIN 30.9 pg (27.0-33.0); MEAN CORPUSCULAR VOLUME 96.5 fL (79-99); RED BLOOD CELL COUNT(AUTO) 3.4 MIL/uL (4.50-6.20); RED CELL DISTRIBUTION WIDTH 15.1 % (11.0-15.5); WHITE BLOOD COUNT (AUTO) 7.3 K/uL (4.8-10.8)
[2020-01-21 06:06] LABS: POTASSIUM 4.5 mmol/L (3.5-5.1)
[2020-01-21] MEDS: INSULIN HUMULIN R 100 UNIT/ML 3ML SQ SCH ×2 (06:40→11:29)
[2020-01-21 08:02] VITALS: BP 139/85
[2020-01-21] MEDS: FAMOTIDINE/PF 20 MG/2 ML VIAL IV SCH (08:39)
[2020-01-21] MEDS: METOPROLOL SUCCINATE 50 MG TAB.SR.24H PO SCH (08:39)
[2020-01-21] MEDS: APIXABAN 2.5 MG TABLET PO SCH (08:39)
[2020-01-21] MEDS ORDERED: AMIODARONE HCL 200 MG TABLET PO SCH (09:00)
[2020-01-21 11:56] VITALS: BP 135/74
== END 2020-01-21 15:59 | disposition home or self-care (01) | DRG 273 ==
LOC: EDH 09:41 → EDHIP 14:15 → 4CH 01-19 00:29
PROVIDERS: ADMIT Internal Medicine; ATTEND Internal Medicine
PROC: 02583ZZ Destruction of Conduction Mechanism, Percutaneous Approach (ICD-10-PCS; principal; 2020-01-20)
PROC: 4A023FZ Measurement of Cardiac Rhythm, Percutaneous Approach (ICD-10-PCS; 2020-01-20)
PROC: 5A2204Z Restoration of Cardiac Rhythm, Single (ICD-10-PCS; 2020-01-20)
PROC: 4A0234Z Measurement of Cardiac Electrical Activity, Percutaneous Approach (ICD-10-PCS; 2020-01-20)
PROC: 02K83ZZ Map Conduction Mechanism, Percutaneous Approach (ICD-10-PCS; 2020-01-20)
DX: I48.3 Typical atrial flutter (principal); I50.23 Acute on chronic systolic (congestive) heart failure; N17.9 Acute kidney failure, unspecified; I13.0 Hypertensive heart and chronic kidney disease with heart failure and stage 1 through stage 4 chronic kidney disease, or unspecified chronic kidney disease; I48.0 Paroxysmal atrial fibrillation; I95.9 Hypotension, unspecified; R00.1 Bradycardia, unspecified; N40.0 Benign prostatic hyperplasia without lower urinary tract symptoms; I25.5 Ischemic cardiomyopathy; I25.10 Atherosclerotic heart disease of native coronary artery without angina pectoris; F03.90 Unspecified dementia, unspecified severity, without behavioral disturbance, psychotic disturbance, mood disturbance, and anxiety; E78.5 Hyperlipidemia, unspecified; E78.00 Pure hypercholesterolemia, unspecified; E11.22 Type 2 diabetes mellitus with diabetic chronic kidney disease; E11.21 Type 2 diabetes mellitus with diabetic nephropathy; N18.9 Chronic kidney disease, unspecified; Z20.828 Contact with and (suspected) exposure to other viral communicable diseases; J98.4 Other disorders of lung; T50.2X5A Adverse effect of carbonic-anhydrase inhibitors, benzothiadiazides and other diuretics, initial encounter; I44.30 Unspecified atrioventricular block; Z79.01 Long term (current) use of anticoagulants; Z87.891 Personal history of nicotine dependence; I25.2 Old myocardial infarction; Z79.899 Other long term (current) drug therapy; Y92.89 Other specified places as the place of occurrence of the external cause; Z98.49 Cataract extraction status, unspecified eye
CPT/HCPCS: 36415; 71045; 80048; 80053; 81003; 82550; 82948; 84484; 85025; 85027; 85610; 85730; 87426; 93005; 93613; 93621; 93653; 93926; 94640; 99156; 99157; C1894; G0378; J1644; J2175; J2250; J3490; J7042; U0003

== ENCOUNTER 2020-04-26 11:28 | Inpatient (IN) | payer MEDICARE ==
[~2020-04-26] VITALS: Ht 180.3 cm; Wt 75.3 kg
[~2020-04-26 11:28] MED LIST changes: -AMIO200T6 PO; +AMIO200T68 PO; -LISI40TA4 PO; +LISI40TA9 PO
[2020-04-26] MEDS ORDERED: ALBUTEROL 0.083% 2.5 MG/3 ML INH IH ONE (11:44)
[2020-04-26 11:46] LABS: BASOPHILS % (AUTO) 0.5 % (0.0-5.0); EOSINOPHILS % (AUTO) 1.9 % (0.0-8.0); HEMATOCRIT 33.8 % (42-54); LYMPHOCYTES % (AUTO) 9.6 % (21.0-51.0); MEAN CORPUSCULAR HEMOGLOBIN 31.5 pg (27.0-33.0); MEAN CORPUSCULAR HGB CONC 31.1 g/dL (32.0-36.0); MEAN CORPUSCULAR VOLUME 101.5 fL (79-99); MONOCYTES % (AUTO) 10.3 % (3.0-13.0); NEUTROPHILS % (AUTO) 77.1 % (40.0-77.0); PLATELET COUNT (AUTO) 290 K/uL (130-400); RED BLOOD CELL COUNT(AUTO) 3.33 MIL/uL (4.50-6.20); RED CELL DISTRIBUTION WIDTH 13.9 % (11.0-15.5); WHITE BLOOD COUNT (AUTO) 9.9 K/uL (4.8-10.8)
[2020-04-26 11:53] LABS: CREATININE 2.8 mg/dL (0.5-1.5)
[2020-04-26 11:58] LABS: ALBUMIN 3.1 g/dL (3.5-5.0); BILIRUBIN,TOTAL 0.4 mg/dL (0.2-1.0); MAGNESIUM 2.4 mg/dL (1.80-2.40); TOTAL PROTEIN, SERUM 6.3 g/dL (6.0-8.3)
[2020-04-26 12:05] LABS: CREATINE KINASE, TOTAL 58 U/L (21-232); MYOGLOBIN 164 ng/mL (10-92); TROPONIN I < 0.04 ng/mL (0.00-0.06)
[2020-04-26 12:14] LABS: INR 1.13 (0.85-1.15); PROTHROMBIN TIME 12.2 SEC (9.6-11.6)
[2020-04-26] MEDS ORDERED: ISOSORBIDE MONO 30MG SR TAB PO ONE (21:01)
[2020-04-26] MEDS ORDERED: APIXABAN 2.5 MG TABLET PO ONE (21:01)
[2020-04-27] MEDS ORDERED: ALBUTEROL 0.083% 2.5 MG/3 ML INH IH ONE ×2 (06:11→12:02)
[2020-04-27] MEDS: ALBUTEROL 0.083% 2.5 MG/3 ML INH IH SCH ×5 (07:20→23:57)
[2020-04-27] MEDS ORDERED: APIXABAN 2.5 MG TABLET PO ONE (08:35)
[2020-04-27] MEDS ORDERED: FUROSEMIDE 40 MG TABLET ONE (08:36)
[2020-04-27] MEDS ORDERED: TAMSULOSIN HCL 0.4 MG CAP.ER.24H ONE (08:36)
[2020-04-27] MEDS: FUROSEMIDE 40 MG TABLET PO SCH (09:00)
[2020-04-27] MEDS ORDERED: ISOSORBIDE DINITRATE 20MG TAB PO SCH (09:45)
[2020-04-27] MEDS: BUDESONIDE 0.5 MG/2 ML INH IH SCH ×2 (12:12→18:53)
[2020-04-27 18:08] VITALS: BP 184/84
[2020-04-27] MEDS: TAMSULOSIN HCL 0.4 MG CAP.ER.24H PO SCH ×2 (19:45→21:07)
[2020-04-27] MEDS: APIXABAN 5 MG TABLET PO SCH ×2 (19:47→21:07)
[2020-04-27 19:51] VITALS: BP 136/60
[2020-04-27] MEDS: ISOSORBIDE DINITRATE 20MG TAB PO SCH ×2 (19:56→21:07)
[2020-04-27 23:43] VITALS: BP 151/76
[2020-04-28 04:00] VITALS: BP 139/56
[2020-04-28] MEDS: ALBUTEROL 0.083% 2.5 MG/3 ML INH IH SCH ×2 (06:33→12:09)
[2020-04-28] MEDS: BUDESONIDE 0.5 MG/2 ML INH IH SCH (06:33)
[2020-04-28] MEDS ORDERED: LISI40TA9 PO (07:12)
[2020-04-28 08:00] VITALS: BP 109/67
[2020-04-28] MEDS: FUROSEMIDE 40 MG TABLET PO SCH (10:14)
[2020-04-28] MEDS: ISOSORBIDE DINITRATE 20MG TAB PO SCH (10:14)
[2020-04-28] MEDS: APIXABAN 5 MG TABLET PO SCH (10:14)
[2020-04-28 12:04] VITALS: BP 95/50
== END 2020-04-28 14:15 | disposition home or self-care (01) | DRG 315 ==
LOC: EDH 11:28 → EDHIP 12:47 → 3AH 04-27 17:49
PROVIDERS: ADMIT Internal Medicine; ATTEND Internal Medicine
DX: I95.9 Hypotension, unspecified (principal); I13.0 Hypertensive heart and chronic kidney disease with heart failure and stage 1 through stage 4 chronic kidney disease, or unspecified chronic kidney disease; N18.4 Chronic kidney disease, stage 4 (severe); I42.0 Dilated cardiomyopathy; I48.19 Other persistent atrial fibrillation; R00.1 Bradycardia, unspecified; E11.22 Type 2 diabetes mellitus with diabetic chronic kidney disease; F03.90 Unspecified dementia, unspecified severity, without behavioral disturbance, psychotic disturbance, mood disturbance, and anxiety; I34.0 Nonrheumatic mitral (valve) insufficiency; I25.5 Ischemic cardiomyopathy; I25.10 Atherosclerotic heart disease of native coronary artery without angina pectoris; I50.9 Heart failure, unspecified; J44.9 Chronic obstructive pulmonary disease, unspecified; T44.7X5A Adverse effect of beta-adrenoreceptor antagonists, initial encounter; E78.5 Hyperlipidemia, unspecified; D53.9 Nutritional anemia, unspecified; Z79.01 Long term (current) use of anticoagulants; Z79.899 Other long term (current) drug therapy; Y92.89 Other specified places as the place of occurrence of the external cause
CPT/HCPCS: 36415; 71045; 80053; 82550; 83735; 83874; 84484; 85025; 85610; 85730; 93005; 93306; 93356; 94640; 94664; G0378

== ENCOUNTER → 2022-05-10 | Outpatient (CLI) | payer MEDICARE ==
[~2022-05-10] MED LIST changes: -AMIO200T68 PO; +APIX2.5T PO; -APIX5TAB PO; +CEFU500T67 PO; -FENO145T26 PO; +FURO20TA4 PO; -FURO40TA5 PO; +ISOS30TA92 PO; +LEVO75CA5 PO; -LISI40TA9 PO; -METF-444 PO; -METF-446 PO; +MULT-1258 PO; -POTA10CA44 PO; +SODPOLY15G PO; +TRULICITY; +VITAMIN C PO; +VITAMIN D3 PO
== END | disposition home or self-care (01) ==
LOC: LAB 09:46
PROVIDERS: ATTEND Internal Medicine Cardiovascular Disease
DX: I11.0 Hypertensive heart disease with heart failure (principal); I50.23 Acute on chronic systolic (congestive) heart failure; I34.0 Nonrheumatic mitral (valve) insufficiency; I48.0 Paroxysmal atrial fibrillation; I49.3 Ventricular premature depolarization
CPT/HCPCS: 36415; 83880